=== PATIENT | female | born 1970 | race Caucasian/White ===

== ENCOUNTER → 2017-02-23 | Day surgery (SDC) | payer MEDICAID ==
[~2017-02-23] VITALS: Ht 167.6 cm; Wt 100.0 kg
[~2017-02-23] MED LIST: ACETAMINOPHEN/HYDROcodone 325 MG/5 MG TAB ONE; BUPIVACAINE HCL PF 0.5% 30 ML VIAL ONE; CHLORHEXIDINE GLUCONATE 2 % 1 PACK (2 CLOTHS) TOPICAL PRN; CHLORHEXIDINE GLUCONATE 4% SOLN 120 ML BTL TOPICAL SCH; CYMB30CA PO; GABA100C4 PO; GENTAMICIN SULFATE 80 MG/2 ML VIAL ONE; HYDR-3583 PO; LACTATED RINGER'S 1000 ML IV PRN; LIDOCAINE HCL 2% 50 ML VIAL ONE; METOPROLOL TARTRATE 25 MG TAB PO PRN; NEOMYCIN/POLYMYXIN 1 ML G.U. IRRIGANT ONE; NORC5TAB PO; POVIDONE IODINE 5% (ANTISEPSIS KIT) 4 APPLICATIONS EACH NARE PRN; SODIUM CHLORID 0.9% 500 ML IV PRN; TIZA4CAP3 PO
[2017-02-23 15:00] VITALS: BP 119/66; PULSE 85; RESP 16; TEMP 98.2; O2SAT 99
--- NOTE | 2017-02-23 16:57 | MP ---
cc: CHACHO MCKEON M.D. DATE OF SURGERY: 02/23/2017. PREOPERATIVE DIAGNOSIS: De Quervain's syndrome of the right wrist. POSTOPERATIVE DIAGNOSIS: De Quervain's syndrome of the right wrist. OPERATIVE PROCEDURE PERFORMED: Release of De Quervain's syndrome of the right wrist. SURGEON: Chacho Mckeon MD. DESCRIPTION OF THE PROCEDURE IN DETAIL: The patient was placed on an operating room stretcher in the supine position and adequate sedation was provided by the anesthesiologist. A local infiltration of approximately 5 cc of 0.25% Marcaine plain with an equal amount of 2% lidocaine plain to infiltrate the local soft tissues. A one inch incision was made in a transverse fashion in the area of the wrist crease at the level of the radial styloid using sharp and blunt dissection and careful not to over-retract the tendon sheath of the first extensor compartment was identified. A tenotomy scissor was used to enter it and a blunter Schuler scissors was used to extend the release both distally and then proximally exposing the underlying tendons, which were now free. There was some fibrous tissue connecting the tendons, which was also excised. The wound was then irrigated and some additional Marcaine was applied following which the wound was closed with interrupted sutures of 4-0 Nylon. Xeroform gauze was applied over the wound followed by application of a bulky dressing. The tourniquet was deflated after 11 minutes. Sponge count, needle count, instrument count were reported to be correct x2. The patient tolerated the procedure well and went to the recovery room in satisfactory condition. Chacho Mckeon MD [facility] /2:16 PM /4:37 PM
== END | disposition home or self-care (01) ==
LOC: PHSDC 09:56
PROVIDERS: ATTEND Orthopaedic Surgery
DX: M65.4 Radial styloid tenosynovitis [de Quervain] (principal)
CPT/HCPCS: 01810; 25000; J7120; J1580